=== PATIENT | female | born 1990 ===

== ENCOUNTER 2018-05-20 06:57 | Inpatient (IN) | payer MEDICAID, SELFPAY ==
[2018-05-20 07:29] VITALS: BMI 25.4
[2018-05-20] MEDS ORDERED: Lactated Ringer's 1,000 ML IV SCH ×3 (07:30→19:30)
[2018-05-20] MEDS ORDERED: Propofol 10 mg/ml Inj (20 ML) ONE (07:30)
[2018-05-20] MEDS ORDERED: Succinylcholine 200 mg/10 ml Inj IV ONE (07:30)
[2018-05-20 07:46] LABS: BASO # 0.1 K/uL (0.0-0.2); BASO % 0.4 % (0.0-2.0); EOS % 0.1 % (0.0-4.0); HEMOGLOBIN 13.7 g/dL (12.0-16.0); LYMPH # 2.8 K/uL (1.0-4.3); LYMPH % 11.2 % (20.0-40.0); MEAN CORPUSCULAR HEMOGLOBIN 29.2 pg (27.0-31.0); MEAN PLATELET VOLUME 8.1 fl (7.2-11.7); MONO # 1.3 K/uL (0.0-0.8); MONO % 5.3 % (0.0-10.0); NEUT # 20.9 K/uL (1.8-7.0); NRBC % 0.1 % (0.0-0.0); RBC 4.7 Mil/uL (3.80-5.20); RED CELL DISTRIBUTION WIDTH 13.7 % (11.5-14.5); WHITE BLOOD COUNT 25.2 K/uL (4.8-10.8)
[2018-05-20] MEDS ORDERED: ceFAZolin IV 2 gm in Dextrose 2 GM/50 ML BAG IVPB ONE (07:54)
[2018-05-20] MEDS ORDERED: Oxytocin 30 units/LR 500ML 30 U/500 ML BAG IV SCH (08:45)
[2018-05-20] MEDS ORDERED: HYDROmorphone 0.5 mg/0.5 ml ISec IVP PRN (08:59)
[2018-05-20] MEDS ORDERED: DiphenhydrAMINE 50 mg/ml Inj IVP PRN (08:59)
[2018-05-20] MEDS ORDERED: ceFAZolin IV 2 gm in Dextrose 2 GM/50 ML BAG IVPB SCH (09:00)
--- NOTE | 2018-05-20 09:36 | RAD ---
HISTORY: post op c section COMPARISON: No prior. FINDINGS: BOWEL: Normal. No obstruction. No free air. BONES: Normal. OTHER FINDINGS: Metallic surgical clips transversely oriented overlying the mid true pelvis IMPRESSION: No evidence acute mechanical bowel obstruction. Status post recent .
[2018-05-20] MEDS ORDERED: Oxycodone/Acetaminophen 5/325 mg Tab PO PRN (11:14)
--- NOTE | 2018-05-20 19:30 | OBADHP ---
Datetime: 05/20/2018 07:05 IP Chief Complaint Other: Cord prolapse Admit Comment, IP Provider: 27 yo F presents to the [facility] with probable ROM. Pt requested to use the restroom and noticed something protruding from her vagina. With sterile gloves, I was able to ap ply pressure to feet of fetus to allow for cord to not be compressed. Dr. Adhikari was notified and S tat section was called. PNC: Dr. Fish obhx: none pmhx: none famhx: dm surg: none soc: denies smoking, etoh, drugs NKDA RX: PNV PE: please refer to PE findings 27 yo IUP 35.5 -Cord prolapse -Stat -Labs: cbc, ts, hbsag -ivf LR bolus -abx: ancef F/U XR abdo Case dw Dr. Onofre Martinez MD PGY ADDENEDUM: findings for cord prolapse was at 07:25 Addendum: I saw and examined patient up presentation. Patient presented with contractions and possible ruptu red membranes. Patient reported feeling something coming out of vagina and patient found to have prol apsed umbilical cord. Decision made for stat and patient transferred immediately to the ope rating room. Onofre Pelvic Type - PN: Adequate Extremities - PN: Normal Abdomen - PN: Normal Back - PN: Normal Breast - PN: Not Done Lungs - PN: Normal Heart - PN: Normal Thyroid - PN: Not Done Neurologic - PN: Normal HEENT - PN: Normal General - PN: Normal Vital Signs Provider: Reviewed; Within Normal Limits IP Chief Complaint: Suspected ruptured membranes; Other Genitourinary Exam: Normal DTRs - PN: Not Done IP Adm Impression: , intrauterine ; Ruptured Membranes IP Admit Plan: Admit to unit; Initiate Section protocol Datetime: 05/20/2018 07:00 IP Fetus A Comments: On presentation, cord prolapse. Stat section
--- NOTE | 2018-05-20 19:40 | OBDS ---
DELIVERY PERSONNEL Delivery Doctor: Anna Adhikari MD attending surgeon/Dr Butler assisting surgeon Manager Market Development: Roman Rodriguez RN/Ross/Chen Anesthesiologist: Dr Ruggiero/Dr Ireland Resident: Dr. Martinez, PGY2 MATERNAL INFORMATION Delivery Anesthesia: General Medications in Delivery: Methergine, Pitocin 20 units in 1000 mls Estimated Blood Loss (ml): 800 Placenta Cultured: Yes Maternal Complications: Other Provider Comments: Stat section delivery. Primary low flap transverse or sexually Pfannenstiel incision. Operative findings: Viable with Apgars of 8 and 9 at one and 5 minutes respectively, comple te breech presentation, prolapsed umbilical cord, normal uterus, normal tubes and ovaries bilaterally . Estimated blood loss 800 mL Fluids 2000 mL lactated Ringer's Urine output 200 mL of clear urine No complications Procedure under general anesthesia LABOR SUMMARY EDC: 06/19/2018 00:00 No. Babies in Womb: 0 Attempted: No Labor Anesthesia: None LABOR INFORMATION Onset of Labor: 05/19/2018 20:00 Steroids Given: None Reason Steroids Not Administered: Not Applicable MEMBRANES Membranes Rupture Method: Spontaneous Rupture of Membranes: 05/20/2018 07:25 Length of Rupture (hrs): 0.13 STAGES OF LABOR Stage 3 hrs: 0 Stage 3 min: 1 Total Time in Labor hrs: 11 Total Time in Labor min: 34 CSECTION DELIVERY Primary Indication: Prolapsed Cord Secondary Indication: Breech Presentation CSection Urgency: Emergency CSection Incidence: Primary Labor: Labor BABY A INFORMATION Delivery Date/Time: 05/20/2018 07:33 Method of Delivery: Born in Route : No : N/A Forceps: N/A Vacuum Extraction: N/A Shoulder Dystocia : No SHOULDER DYSTOCIA BABY A Infant Delivery Date/Time: 05/20/2018 07:33 PRESENTATION/POSITION BABY A Presentation: Breech Cephalic Presentation: Vertex Breech Presentation: Double Footling PLACENTA INFORMATION BABY A Placenta Delivery Time : 05/20/2018 07:34 Placenta Method of Delivery: Expressed Placenta Status: Delivered SCORES BABY A Heart Rate 1 min: >100 bpm Resp Effort 1 min: Good Cry Reflex Irritability 1 min: Cough or Sneeze or Pulls Away Muscle Tone 1 min: Active Motion Color 1 min: Blue/Pale SCORE 1 MIN: 8 Heart Rate 5 min: >100 bpm Resp Effort 5 min: Good Cry Reflex Irritability 5 min: Cough or Sneeze or Pulls Away Muscle Tone 5 min: Active Motion Color 5 min: Body [place], Extremities Blue Resuscitation Effort 5 min: N/A SCORE 5 MIN: 9 INFANT INFORMATION BABY A Gestational Age at Delivery: 35.5 Gestational Status: Outcome : Liveborn Condition : Stable Infant Sex: Male IDENTIFICATION/MEDS BABY A ID Band Number: [id number] ID Band Location: Left Leg; Left Arm Vitamin K Given : Not Given Erythromycin Given: Not Given WEIGHT/LENGTH BABY A Birthweight (gms): 3325 Weight (lb): 7 Weight (oz): 5 CORD INFORMATION BABY A No. Cord Vessels: 3 Nuchal Cord : N/A Nuchal Cord Other: N/A True Knot: N/A Infant Cord pH Baby Arterial: N/A Cord pH Baby Venous: N/A Cord Blood Taken: Yes Banking/Donate Info: N/A Infant Suction: Mouth; Nose; Pharynx ASSESSMENT BABY A Infant Complications: None Physical Findings at Delivery: Within Normal Limits Respirations: Grunting; Nasal Flaring; Sternal Retractions Care By: Dr Orta/[place]/Alysha Transferred To: Nursery
[2018-05-20] MEDS: Lactated Ringer's 1,000 ML IV SCH (20:55)
[2018-05-21] MEDS: Lactated Ringer's 1,000 ML IV SCH (04:26)
--- NOTE | 2018-05-21 06:12 | OP ---
PROCEDURE DATE: 05/20/2018 PREOPERATIVE DIAGNOSES: , premature rupture of membranes, prolapsed umbilical cord, breech presentation. POSTOPERATIVE DIAGNOSES: , premature rupture of membranes, prolapsed umbilical cord, breech presentation. OPERATION PERFORMED: Primary low flap transverse section via Pfannenstiel incision. OPERATIVE FINDINGS: Viable with Apgars of 8 and 9 at 1 and 5 minutes respectively, complete breech presentation, prolapsed umbilical cord, normal uterus, normal tubes and ovaries bilaterally. ESTIMATED BLOOD LOSS: 800 mL. FLUIDS: 2000 mL Lactated Ringer's. URINE OUTPUT: 200 mL of clear urine at the end of procedure. COMPLICATIONS: None. SURGEON: Shant Adhikari MD ROTARY OPERATOR: Elmer Butler MD. Dr. Butler was present from the beginning of the procedure to the end of the procedure. Dr. Butler was integral in delivery of the infant, exposing the surgical field, controlling intraoperative bleeding. ANESTHESIA: General. ANESTHESIA ADMINISTERED BY: Dr. Martel. INDICATIONS FOR THE PROCEDURE: The patient presented to Obstet[facility] Emergency Department complaining of leakage of fluids. Upon presentation, the patient was found to have prolapsed umbilical cord. The patient was immediately transferred to the operating room for stat section. DESCRIPTION OF THE PROCEDURE: After general anesthesia was found to be adequate, the patient was prepped and draped in the normal sterile fashion in the dorsal supine position with a leftward tilt. A Pfannenstiel skin incision was made with a scalpel. This was carried down through to the underlying layer of fascia with the scalpel. Midline defect was made in the fascial layer with the scalpel. The fascial incision was then extended bilaterally sharply with curved Ghosh scissors. The fascial layer was from the underlying rectus muscles both bluntly and sharply with curved Ghosh scissors. The rectus muscles were at the midline. The peritoneum was then identified and entered bluntly. The peritoneal incision was extended bluntly. A Margie retractor was placed into the abdominal cavity. The uterus was incised with a scalpel. The uterine incision was extended bilaterally bluntly. The 's lower extremities were delivered without complication. The infant's body was delivered without complication. The upper extremities were flexed and delivered without complication. The infant's head was flexed and delivered without complication. The cord was clamped and cut. The was handed off to waiting pediatricians. Cord gases were collected. Cord blood was collected. The placenta was removed manually. The uterus was cleared of all clots and debris. The uterine incision was repaired with 0 Vicryl in a running, locked fashion. Second layer of the same suture was used to imbricate the first and to obtain excellent hemostasis. Reinspection of the uterine incision proved excellent hemostasis. The abdomen and pelvis were irrigated with copious amounts of warm normal saline. Reinspection of the uterine incision proved excellent hemostasis. All instruments were removed from the patient. The peritoneal layer was closed with a running stitch of 2-0 chromic. The rectus muscles were reapproximated at the midline with a running stitch of 2-0 chromic. The fascial layer was closed with a running stitch of 0 Vicryl. A subcutaneous tissue was reapproximated with a running stitch of 3-0 plain. The skin was closed with analilia. The patient tolerated the procedure well. All sponge count, lap count, and needle counts were correct x2. The patient was given 1 gm of Ancef intraoperatively. There were no complications. Abdominal and pelvic x-ray was done in the operating room to ensure proper counting of instruments. The patient was taken to the recovery room in awake and stable condition. Shant Adhikari MD
[2018-05-21 06:26] LABS: HEMOGLOBIN 11.2 g/dL (12.0-16.0); MEAN CELL VOLUME 85.9 fl (81.0-99.0); MEAN CORPUSCULAR HEMOGLOBIN 29.2 pg (27.0-31.0); MEAN CORPUSCULAR HGB CONC 33.9 g/dL (33.0-37.0); RBC 3.84 Mil/uL (3.80-5.20); RED CELL DISTRIBUTION WIDTH 13.9 % (11.5-14.5); WHITE BLOOD COUNT 20.3 K/uL (4.8-10.8)
--- NOTE | 2018-05-21 10:29 | OBPPN ---
Datetime: 05/21/2018 06:01 PP Pain Prov: Within normal limits PP Nausea Prov: Denies PP Flatus Prov: Yes PP BM Prov: No PP C/S Incision Prov: Normal PP Impression Prov: Normal progression PP Plan Prov: Continue present management PP Progress Note Prov: S: Patient see and examined this morning at the bedside, laying comfortably o n bed. Pain is well controlled by medications, encourage ambulation, advance diet. + gas but no BM ye t. Voiding w/o difficulty. Dressing and jeffery d/c today. Patient denies too much bleeding. Denies marco st pain, dyspnea, n/v, fever/chills, diarrhea, nausea/vomiting, and calf pain. VSS, afebrile Gen: NAD Lungs: CTA B/L, no wheezing. CVS: RRR, S1, S2 no murmurs. Abd: ND, +BS, appropriated tenderness, fundus firm at umbilical level. Incision C/D/I. Ext: No edema, neg calf tenderness. Neuro/psych: AAOx3, no focal deficit, preserved affect and mood. A/P: 27 yo F , s/p C section. Doing well on POD 1. -advance diet as tolerated. -OOB with caution, SCDs for DVT prophylaxis. -Percocet 5/325 mg/ Ibuprofen 600 mg for pain prn. -Colace 100mg PO BID PRN -Encourage and ambulation -pp H/H pending -Anticipated d/c on 05/23/18 -Patient is aware and all the questions were answered YBecerra PGY1 Patient seen and evaluated by me this am. Agree with above note. --Dr. Jimenez IP PP Procedures: None Vital Signs Provider PP: Reviewed; Within Normal Limits Vital Signs Provider Details PP: formula
[2018-05-21] MEDS: Simethicone 80 mg Chewtab PO PRN ×2 (17:00→22:18)
[2018-05-21] MEDS: Multivitamin With Minerals Tab PO SCH (17:00)
[2018-05-22] MEDS: Simethicone 80 mg Chewtab PO PRN (04:27)
--- NOTE | 2018-05-22 08:09 | OBPN ---
Datetime: 05/21/2018 08:07 IP Progress Note Comment: Patient doing well ambulating tolerating diet and voiding without difficul ty Vital signs stable afebrile Uterus firm below the umbilicus Encourage ambulation regular diet analgesia as needed Datetime: 05/20/2018 07:05 Vital Signs Provider: Reviewed; Within Normal Limits Datetime: 05/20/2018 07:00 IP Fetus A Comments: On presentation, cord prolapse. Stat section
[2018-05-22] MEDS: Multivitamin With Minerals Tab PO SCH (08:58)
--- NOTE | 2018-05-22 13:00 | OBPPN ---
Datetime: 05/22/2018 06:06 PP Pain Prov: Within normal limits PP Nausea Prov: Denies PP Flatus Prov: Yes PP BM Prov: No PP C/S Incision Prov: Normal PP Progress Prov: Normal PP Impression Prov: Normal progression PP Plan Prov: Continue present management PP Progress Note Prov: S: Patient see and examined this morning at the bedside, laying comfortably o n bed. Pain is well controlled by medications, ambulating and tolerating well PO. + gas but no BM yet . Voiding w/o difficulty. Patient denies too much bleeding. Good pumping process. Denies chest pain, dyspnea, n/v, fever/chills, diarrhea, nausea/vomiting, and calf pain. VSS, afebrile Gen: NAD Lungs: CTA B/L, no wheezing. CVS: RRR, S1, S2 no murmurs. Abd: ND, +BS, appropriated tenderness, fundus firm at umbilical level. Incision C/D/I. Ext: No edema, neg calf tenderness. Neuro/psych: AAOx3, no focal deficit, preserved affect and mood. A/P: 27 yo F , s/p C section. Doing well on POD 2. -c/ regular diet as tolerated. -OOB with caution, SCDs for DVT prophylaxis. -Percocet 5/325 mg/ Ibuprofen 600 mg for pain prn. -Senokot 17.2 mg PO x constipation. -Encourage and ambulation -pp H/H 11.2/33.0 -Anticipated d/c on 05/23/18 -Patient is aware and all the questions were answered YBecerra PGY-1 Patient seen and examined by me this am. Agree with above resident note. -Dr. Jimenez IP PP Procedures: None Vital Signs Provider PP: Reviewed; Within Normal Limits Vital Signs Provider Details PP: Pumping
[2018-05-23] MEDS: Multivitamin With Minerals Tab PO SCH (08:58)
[2018-05-23] MEDS ORDERED: Measles, Mumps, and Rubella 0.5 ML VIAL SC ONE (09:00)
[2018-05-23] MEDS: Simethicone 80 mg Chewtab PO PRN (09:00)
--- NOTE | 2018-05-23 09:33 | OBDCSUM ---
Datetime: 05/23/2018 06:06 Discharged to, Provider: Home Follow up at, Provider: Dr Fish Disch Instr Activity: May be up to bathroom; May be up for meals; May Shower Disch Instr Diet: Regular Discharge Instructions, Provider: Routine instructions given Discharge Diagnosis, Provider: Delivery Discharge Time: 05/23/2018 10:00 Follow up in weeks, Provider: [facility] Disch Referrals: None Contraception discussed, Prov: Yes Disch Activity Restrictions: No exercising; No lifting; Minimize stair-climbing; No sexual activity; Nothing in vagina - [place], tampons, douche Discharge Comment, Provider: EGA: 36.0 weeks Diagnosis: Stat , cord prolapse. RF: none DOL: 05/20/18 at 7:33 NB: M : 8/9 Weight: 3325 g PP summary: No serious complications during PP. Lochia= menses, mild pain, controlled with medicat ions. Rubella: non-immune. MMR Blood type: O+ CBC pp: 11.2/33.0 Discharge Date: 05/23/2018 at 10 am Discharge Instructions: -encourage -Ibuprofen/Percocet for pain PRN -Colace BID for constipation -Ambulate as tolerated -f/u NB visit and PP visit Contraception after Delivery: Undecided
--- NOTE | 2018-05-23 09:33 | OBPPN ---
Datetime: 05/23/2018 06:05 PP Pain Prov: Within normal limits PP Nausea Prov: Denies PP Flatus Prov: Yes PP BM Prov: Yes PP C/S Incision Prov: Normal PP Progress Prov: Normal PP Impression Prov: Normal progression PP Plan Prov: Discharge PP Progress Note Prov: S: Patient see and examined this morning at the bedside, laying comfortably o n bed. Pain is well controlled by medications, ambulating and tolerating well PO. Normal BM yesterday . Voiding w/o difficulty. Lochia like menses. Denies chest pain, dyspnea, n/v, fever/chills, diarrhea , nausea/vomiting, and calf pain. VSS, afebrile Gen: NAD Lungs: CTA B/L, no wheezing. CVS: RRR, S1, S2 no murmurs. Abd: ND, +BS, appropriated tenderness, fundus firm at umbilical level. Incision C/D/I. Ext: No edema, neg calf tenderness. Neuro/psych: AAOx3, no focal deficit, preserved affect and mood. A/P: 27 yo F , s/p C section. Doing well on POD 3. -c/ regular diet as tolerated. -OOB with caution, SCDs for DVT prophylaxis. -Percocet 5/325 mg/ Ibuprofen 600 mg for pain prn. -Senokot 17.2 mg PO x constipation. -Encourage and ambulation -pp H/H 11.2/33.0 -Discharge home today. -Patient is aware and all the questions were answered YBecerra PGY-[address] Jorgensen: I have evaluated the pt independently and I agree with the above IP PP Procedures: Rubella Vital Signs Provider PP: Reviewed; Within Normal Limits
[2018-05-23 16:45] VITALS: BP 98/52; PULSE 106; RESP 20; TEMP 98.2; O2SAT 97
== END 2018-05-23 12:00 | disposition home or self-care (01) | DRG 765 ==
LOC: H.EROB2 06:57 → H.L&D 07:30 → H.OB/GYN 12:33
PROVIDERS: ADMIT Obstetrics & Gynecology; ATTEND Obstetrics & Gynecology
PROC: 10D00Z1 Extraction of Products of Conception, Low, Open Approach (ICD-10-PCS; principal; 2018-05-20)
PROC: 4A1HXCZ Monitoring of Products of Conception, Cardiac Rate, External Approach (ICD-10-PCS; 2018-05-20)
DX: O69.0XX0 Labor and delivery complicated by prolapse of cord, not applicable or unspecified (principal); O60.14X0 Preterm labor third trimester with preterm delivery third trimester, not applicable or unspecified; O42.913 Preterm premature rupture of membranes, unspecified as to length of time between rupture and onset of labor, third trimester; O32.1XX0 Maternal care for breech presentation, not applicable or unspecified; Z3A.35 35 weeks gestation of pregnancy; Z37.0 Single live birth; K59.00 Constipation, unspecified